=== PATIENT | male | born 1970 | race Caucasian/White ===

== ENCOUNTER → 2016-11-01 | Outpatient (CLI) | payer BC ==
[2016-11-01 18:27] LABS: Basophils # (A) 0.1 k/uL (0-0.2); Basophils % (A) 1 %; CH 29.4; CHCM 35.1; Eosinophils # (A) 0.4 k/uL (0-0.7); Eosinophils % (A) 4 %; HCT 46.3 % (39.0-53.0); HDW 2.93; HGB 15.4 gm/dL (13.0-17.5); Luc # (Auto) 0.21; Luc % (Auto) 2; Lymphocytes % (A) 33 %; MCH 28.1 pg (25.0-35.0); MCHC 33.3 g/dL (31.0-37.0); MCV 84.3 fL (80.0-100.0); Mean Platelet Volume 8.3; Monocytes # (A) 0.7 k/uL (0-1.0); Monocytes % (A) 8 %; Neutrophils # (A) 4.6 k/uL (1.3-7.7); Neutrophils % (A) 52 %; RBC 5.49 m/uL (4.30-5.90); RDW 12.5 % (11.5-15.5); WBC (Perox) 8.83
[2016-11-01 18:45] LABS: ALT 43 U/L (21-72); AST 24 U/L (17-59); Alkaline Phosphatase 69 U/L (38-126); Anion Gap 16 mmol/L; Blood Urea Nitrogen 21 mg/dL (9-20); Calcium 10.3 mg/dL (8.4-10.2); Carbon Dioxide 28 mmol/L (22-30); Chloride 97 mmol/L (98-107); Cholesterol 254 mg/dL (<200); Glucose 237 mg/dL (74-99); HDL Cholesterol 36 mg/dL (40-60); Magnesium 1.2 mg/dL (1.6-2.3); Non-African American GFR(MDRD) >60 (>60 ml/min/1.73 sqM); Potassium 5.5 mmol/L (3.5-5.1); Sodium 141 mmol/L (137-145); Total Bilirubin 0.8 mg/dL (0.2-1.3); Total Protein 8.4 g/dL (6.3-8.2)
[2016-11-01 19:28] LABS: Triglycerides 954 mg/dL (<150)
[2016-11-01 20:26] LABS: Hemoglobin A1C 8.6 % (4.2-6.1)
== END | disposition home or self-care (01) ==
LOC: MMGSC 17:02
PROVIDERS: ATTEND Family Medicine
DX: I10 Essential (primary) hypertension (principal); E73.0 Congenital lactase deficiency; M79.1 Myalgia; E11.9 Type 2 diabetes mellitus without complications
CPT/HCPCS: 36415; 80053; 80061; 82043; 83036; 83721; 83735; 84439; 84443; 85025

== ENCOUNTER → 2017-05-31 | Outpatient (CLI) | payer BC ==
[2017-05-31 19:41] LABS: ALT 73 U/L (21-72); AST 43 U/L (17-59); Alkaline Phosphatase 80 U/L (38-126); Anion Gap 9 mmol/L; Blood Urea Nitrogen 15 mg/dL (9-20); Calcium 9.8 mg/dL (8.4-10.2); Carbon Dioxide 28 mmol/L (22-30); Chloride 99 mmol/L (98-107); Cholesterol 269 mg/dL (<200); Glucose 258 mg/dL (74-99); HDL Cholesterol 28 mg/dL (40-60); Non-African American GFR(MDRD) >60 (>60 ml/min/1.73 sqM); Potassium 5.5 mmol/L (3.5-5.1); Sodium 136 mmol/L (137-145); Total Bilirubin 0.5 mg/dL (0.2-1.3); Total Protein 7.7 g/dL (6.3-8.2)
[2017-05-31 20:47] LABS: Hemoglobin A1C 10.2 % (4.2-6.1)
[2017-06-01 00:52] LABS: Urine Creatinine 187.7 mg/dL
== END | disposition home or self-care (01) ==
LOC: MMGSC 09:18
PROVIDERS: ATTEND Family Medicine
DX: E11.9 Type 2 diabetes mellitus without complications (principal); I10 Essential (primary) hypertension
CPT/HCPCS: 36415; 80053; 80061; 82043; 82570; 83036

== ENCOUNTER → 2017-06-16 | Outpatient (CLI) | payer BC ==
[2017-06-16 20:24] LABS: ALT 58 U/L (21-72); AST 34 U/L (17-59); Alkaline Phosphatase 86 U/L (38-126); Anion Gap 11 mmol/L; Blood Urea Nitrogen 18 mg/dL (9-20); Calcium 9.7 mg/dL (8.4-10.2); Carbon Dioxide 24 mmol/L (22-30); Chloride 101 mmol/L (98-107); Glucose 203 mg/dL (74-99); Non-African American GFR(MDRD) >60 (>60 ml/min/1.73 sqM); Potassium 4.9 mmol/L (3.5-5.1); Sodium 136 mmol/L (137-145); Total Bilirubin 0.7 mg/dL (0.2-1.3); Total Protein 7.5 g/dL (6.3-8.2)
== END | disposition home or self-care (01) ==
LOC: MMGSC 10:24
PROVIDERS: ATTEND Family Medicine
DX: E87.5 Hyperkalemia (principal); E87.1 Hypo-osmolality and hyponatremia
CPT/HCPCS: 36415; 80053

== ENCOUNTER → 2017-12-11 | Outpatient (CLI) | payer BC, OTHER ==
[2017-12-11 18:56] LABS: ALT 64 U/L (21-72); AST 40 U/L (17-59); Albumin 4.3 g/dL (3.5-5.0); Alkaline Phosphatase 74 U/L (38-126); Anion Gap 12 mmol/L; Blood Urea Nitrogen 17 mg/dL (9-20); Calcium 9.6 mg/dL (8.4-10.2); Carbon Dioxide 27 mmol/L (22-30); Chloride 102 mmol/L (98-107); Cholesterol 230 mg/dL (<200); Glucose 203 mg/dL (74-99); HDL Cholesterol 31 mg/dL (40-60); Potassium 4.5 mmol/L (3.5-5.1); Sodium 141 mmol/L (137-145); Total Bilirubin 0.6 mg/dL (0.2-1.3); Total Protein 7.8 g/dL (6.3-8.2); Triglycerides 448 mg/dL (<150)
[2017-12-11 19:02] LABS: Basophils % (A) 1 %; Eosinophils # (A) 0.5 k/uL (0-0.7); Eosinophils % (A) 6 %; HCT 41.3 % (39.0-53.0); HGB 13.9 gm/dL (13.0-17.5); Lymphocytes # (A) 2.6 k/uL (1.0-4.8); Lymphocytes % (A) 37 %; MCH 27.7 pg (25.0-35.0); MCHC 33.6 g/dL (31.0-37.0); MCV 82.4 fL (80.0-100.0); Mean Platelet Volume 8.6; Monocytes # (A) 0.4 k/uL (0-1.0); Monocytes % (A) 6 %; Neutrophils # (A) 3.4 k/uL (1.3-7.7); Neutrophils % (A) 48 %; Platelet Count 351 k/uL (150-450); RBC 5.01 m/uL (4.30-5.90)
[2017-12-11 19:10] LABS: T4, Free (Free Thyroxine) 0.99 ng/dL (0.78-2.19)
[2017-12-12 02:20] LABS: Hemoglobin A1C 9.3 % (4.0-6.0)
== END ==
LOC: MMGSC 09:49
PROVIDERS: ATTEND Family Medicine
DX: E11.9 Type 2 diabetes mellitus without complications (principal); E78.5 Hyperlipidemia, unspecified; I10 Essential (primary) hypertension
CPT/HCPCS: 36415; 80053; 80061; 82043; 82570; 83036; 84439; 84443; 85025

== ENCOUNTER 2022-07-11 19:55 | Inpatient (IN) | payer BC, OTHER ==
[2022-07-11 21:34] LABS: African American GFR (CKD) >90 (>60 ml/min/1.73 sqM); Alcohol <10 mg/dL; Anion Gap 14 mmol/L; Blood Urea Nitrogen 31 mg/dL (9-20); Calcium 9.6 mg/dL (8.4-10.2); Carbon Dioxide 23 mmol/L (22-30); Chloride 101 mmol/L (98-107); Glucose 163 mg/dL (74-99); Non-African American GFR(CKD) 82 (>60 ml/min/1.73 sqM); Potassium 4.1 mmol/L (3.5-5.1); Sodium 138 mmol/L (137-145)
--- NOTE | 2022-07-11 21:48 | ED ---
General Adult HPI - General Source: patient, RN notes reviewed, old records reviewed Mode of arrival: ambulatory <Alexis Greer - Last Filed: 07/11/22 22:29> <Ryan Cadena - Last Filed: 07/12/22 02:23> - General Chief complaint: Psychiatric Symptoms Stated complaint: Mental Health Time Seen by Provider: 07/11/22 20:08 - History of Present Illness Initial comments: Patient is a 52-year-old male with past medical history remarkable for diabetes, hypertension, hyperlipidemia, prior stenting who presents emergency Department c omplaining of a suicide attempt. States he has been more depressed, has had more stressors in life. Today he decided to try to kill himself. He hasn't attempted previously. Patient took an extension cord, tied it around his neck and then tied it to the ceiling of his basement. States he was too tall and is feeling too short for full on hanging. He states therefore he leaned forward for approximately 30 seconds to 60 seconds. States he nearly passed out. He stopped, left, and when he returned, police were at his house. When called them to bring him here for further evaluation. His episode occurred 1-2 hours prior to arrival. Currently denies any shortness of breath, difficulty swallowing. Denies any chest pain, shortness breath, abdominal pain, nausea, vomiting. No acute this time. Denies any homicidal attempts, ideations, plans. Denies any visual or auditory hallucinations. His no other Acute complaints at this time. (Alexis Greer) - Related Data Allergies Allergy/AdvReac Type Severity Reaction Status Date / Time No Known Allergies Allergy Verified 07/11/22 20:05 Review of Systems ROS Other: All systems not noted in ROS Statement are negative. <Alexis Greer - Last Filed: 07/11/22 22:29> ROS Other: All systems not noted in ROS Statement are negative. <Ryan Cadena - Last Filed: 07/12/22 02:23> ROS Statement: Those systems with pertinent positive or pertinent negative responses have been documented in the HPI. Review of Systems: CONST: Denies fever EYES: Denies blurry vision ENT: Denies nasal congestion C/V: Denies Chest pain RESP: Denies shortness of breath GI: Denies abdominal pain : Denies dysuria SKIN: Denies rash. MSK: Denies joint pain. NEURO: Denies headache PSYCH: Denies homicidal ideations/plans/attempts. Endorses suicide attempt. Denies visual or auditory hallucinations. (Alexis Greer) Past Medical History Past Medical History: Coronary Artery Disease (CAD), Chest Pain / Angina, Diabetes Mellitus, Hypertension History of Any Multi-Drug Resistant Organisms: None Reported Past Surgical History: Heart Catheterization With Stent Additional Past Surgical History / Comment(s): x4 STENTS Past Psychological History: No Psychological Hx Reported Smoking Status: Never smoker Past Alcohol Use History: Occasional Past Drug Use History: None Reported <Alexis Greer - Last Filed: 07/11/22 22:29> General Exam <Alexis Greer - Last Filed: 07/11/22 22:29> - General Exam Comments Initial Comments: General: Appears in no acute distress. HEAD: Normal with no signs of head trauma. EYES: PERRLA, EOMI, conjunctiva normal, no discharge. ENT: Hearing grossly intact, normal oropharynx. No stridor. No ligature felton. No carotid bruits. RESPIRATORY: Clear breath sounds bilaterally. No wheezes, rales, or rhonchi. C/V: Regular rate and rhythm. S1 and S2 auscultated, no edema, peripheral pulses 2+ and intact throughout ABD: Abd is soft, nontender, nondistended EXT: Normal range of motion, no obvious deformity SKIN: No rashes or lesions observed on exposed skin. NEURO: Alert and oriented 4. No focal deficits. (Alexis Greer) Course <Ryan Cadena - Last Filed: 07/12/22 02:23> Vital Signs 07/11/22 20:02 Temperature 98.1 F Pulse Rate 95 Respiratory 18 Rate Blood Pressure 137/85 O2 Sat by Pulse 99 Oximetry - Reevaluation(s) Reevaluation #1: 07/12/22 02:23 medical clear for psychiatric evaluation (Ryan Cadena) Medical Decision Making - Lab Data Result diagrams: 07/11/22 21:21 <Alexis Greer - Last Filed: 07/11/22 22:29> - Lab Data Result diagrams: 07/11/22 21:21 <Ryan Cadena - Last Filed: 07/12/22 02:23> - Medical Decision Making Based on the patient's presentation and physical exam, I'm concerned for suicide attempt. The patient. I believe it was a low risk injury on the circulation attempt, however I did offer we obtain CT angiogram of the neck which she was in agreement with. Patient is low risk, with no signs or symptoms of injury but he was in agreement this plan. Basic labs were also be obtained to evaluate the kidney function. Alcohol level is negative. Kidney function is within acceptable limits. Vital signs within normal limits. Patient was placed in green scrubs. Suicide cautions were ordered. Sitter was ordered. Patient changed his mind and refuses CT imaging, as he is asymptomatic, has a low risk attempt, with no signs or symptoms of injury. I believe this is reasonable at this time. We will CT imaging. Patient is now cleared for reevaluation. UDS is pending at this time. Disposition is pending psychiatric evaluation. (Alexis Greer) 52 male seen and evaluated, patient be admitted for psychiatric evaluation and treatment (Ryan Cadena) - Lab Data Lab Results 07/11/22 Range/Units 21:21 Sodium 138 (137-145) mmol/L Potassium 4.1 (3.5-5.1) mmol/L Chloride 101 (98-107) mmol/L Carbon Dioxide 23 (22-30) mmol/L Anion Gap 14 mmol/L BUN 31 H (9-20) mg/dL Creatinine 1.05 (0.66-1.25) mg/dL Est GFR (CKD-EPI)AfAm >90 (>60 ml/min/1.73 sqM) Est GFR (CKD-EPI)NonAf 82 (>60 ml/min/1.73 sqM) Glucose 163 H (74-99) mg/dL Calcium 9.6 (8.4-10.2) mg/dL Serum Alcohol <10 mg/dL Disposition <Alexis Greer - Last Filed: 07/11/22 22:29> Is patient prescribed a controlled substance at d/c from ED?: No <Ryan Cadena - Last Filed: 07/12/22 02:23> Clinical Impression: Attempted suicide, Suicidal ideation, Acute anxiety, Depression Disposition: TRANSFER TO PSYCH HOSP/UNIT Condition: Fair Referrals: None,Stated [Primary Care Provider] - 1-2 days
[2022-07-12] MEDS ORDERED: HALOPERIDOL LACTATE 5 MG/ML 1 ML VIAL IM PRN (03:10)
[2022-07-12] MEDS ORDERED: MAG HYDROX/AL HYDROX/SIMETH 30 ML CUP PO PRN (03:10)
[2022-07-12] MEDS ORDERED: MAGNESIUM HYDROXIDE 2,400 MG/10 ML CUP PO PRN (03:10)
[2022-07-12] MEDS ORDERED: ACETAMINOPHEN TAB 325 MG TAB PO PRN (03:10)
[2022-07-12] MEDS ORDERED: LORazepam 1 MG TAB PO PRN (03:10)
[2022-07-12] MEDS ORDERED: haloperidoL 5 MG TAB PO PRN (03:14)
[2022-07-12] MEDS ORDERED: LORazepam 2 MG/ML INJ IM PRN (03:14)
[2022-07-12 07:57] LABS: Glucose,Whole Blood 143 mg/dL (70-110)
[2022-07-12] MEDS: INSULIN ASPART (NovoLOG) 100 UNIT/ML VIAL SQ SCH ×4 (08:26→20:10)
[2022-07-12 12:53] LABS: Glucose,Whole Blood 139 mg/dL (70-110)
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
[2022-07-12] MEDS ORDERED: LORazepam 1 MG/0.5 ML VIAL IM PRN (15:20)
[2022-07-12] MEDS: SUCRALFATE 1 GM TAB PO SCH ×2 (16:32→20:13)
[2022-07-12] MEDS: PANTOPRAZOLE 40 MG TABLET PO SCH (16:32)
[2022-07-12] MEDS: carvediloL 12.5 MG TAB PO SCH (16:33)
[2022-07-12] MEDS: lisinopriL 20 MG TAB PO SCH (16:33)
[2022-07-12] MEDS: ASPIRIN 81 MG PO SCH (16:33)
[2022-07-12] MEDS: DULoxetine HCL 30 MG CAPSULE.DR PO SCH (16:33)
[2022-07-12 18:14] LABS: Glucose,Whole Blood 190 mg/dL (70-110)
[2022-07-12 20:09] LABS: Glucose,Whole Blood 179 mg/dL (70-110)
[2022-07-12] MEDS: traZODone HCL 50 MG TAB PO SCH (20:13)
[2022-07-12] MEDS: FAMOTIDINE 20 MG TAB PO SCH (20:13)
--- NOTE | 2022-07-13 03:10 | P.CONS ---
History of Present Illness - Reason for Consult Consult date: 07/13/22 - History of Present Illness The patient is a 52-year-old male with a PMH of type II DM, coronary artery disease status post stenting of LAD, hypertension, hyperlipidemia, asthma who presents to the emergency room with complaints of depression and suicidal ideation. The patient reports that he has been having a difficult time at work and his relationship with his is also been deteriorating. He reports that as a result he attempted to hang himself. He denied any physical complaints at the time of interview. He denied experiencing chest discomfort, shortness of breath, fever, chills, cough, nausea, vomiting, abdominal pain, diarrhea. Review of systems: Pertinent positives and negatives as discussed in HPI, a complete review of systems was performed and all other systems are negative. Physical examination: General: non toxic, no distress, appears at stated age, obese Derm: no unusual rashes/lesions, no unusual ecchymoses, warm, dry Head: atraumatic, normocephalic, symmetric Eyes: EOMI, no lid lag, anicteric sclera ENT: Nose and ears atraumatic, no thrush, no pharyngeal erythema Neck: trachea midline, supple Mouth: no lip lesion, mucus membranes moist Cardiovascular: S1S2 reg, no murmur, no edema Lungs: CTA bilateral, no rhonchi, no rales , no accessory muscle use Abdominal: soft, nontender to palpation, no guarding Ext: no gross muscle atrophy, no contractures, Neuro: No gross focal neuro deficits noted Psych: Alert, oriented, appropriate affect Assessment/plan Chronic conditions: Type II DM, hypertension, hyperlipidemia, coronary artery disease -Continue with home medications -Check A1c Depression with suicidal ideation -As per psychiatry Thank you for allowing us to participate in the care of this patient. We will follow peripherally. Do not hesitate to contact us with questions. Someone can be reached from the [facility] hospitalist group at all hours of the day at [phone]. Past Medical History Past Medical History: Coronary Artery Disease (CAD), Chest Pain / Angina, Diabetes Mellitus, Hypertension History of Any Multi-Drug Resistant Organisms: None Reported Past Surgical History: Heart Catheterization With Stent Additional Past Surgical History / Comment(s): x4 STENTS Past Anesthesia/Blood Transfusion Reactions: No Reported Reaction Date of Last Stent Placement:: UNK Smoking Status: Never smoker - Past Family History Mother Sister(s) Family Medical History: Asthma Medications and Allergies Home Medications Medication Instructions Recorded Confirmed Type Albuterol Sulfate [Albuterol 1 puff PO Q4-6H 07/12/22 07/12/22 History Sulfate Hfa] Aspirin 81 mg PO DAILY 07/12/22 07/12/22 History Dexlansoprazole [Dexilant] 60 mg PO 07/12/22 History Dulaglutide [Trulicity] 0.75 mg SQ 07/12/22 History Famotidine 40 mg PO 07/12/22 History Furosemide [Lasix] 20 mg PO DAILY 07/12/22 07/12/22 History Pantoprazole Sodium [Protonix] 40 mg PO 07/12/22 History Rosuvastatin Calcium [Crestor] 40 mg PO 07/12/22 History Sucralfate [Carafate] 1 gm PO ACHS 07/12/22 07/12/22 History Venlafaxine HCl ER [Effexor Xr] 150 mg PO DAILY 07/12/22 07/12/22 History carvediloL [Coreg] 12.5 mg PO BID 07/12/22 07/12/22 History lisinopriL 40 mg PO DAILY 07/12/22 07/12/22 History Allergies Allergy/AdvReac Type Severity Reaction Status Date / Time Fish Containing Products Allergy Anaphylaxis Verified 07/12/22 03:17 [Fish] sesame oil Allergy Unknown Verified 07/12/22 03:17 Sesame Seed Allergy Unknown Verified 07/12/22 03:17 Physical Exam Vitals: Vital Signs Temp Pulse Resp BP Pulse Ox 07/12/22 16:34 91 127/81 07/12/22 08:00 98.0 F 81 17 136/76 98 07/12/22 04:18 98.6 F 77 18 134/76 98 Results CBC & Chem 7: 07/11/22 21:21 Labs: Abnormal Lab Results - Last 24 Hours (Table) 07/12/22 07/12/22 07/12/22 Range/Units 07:55 12:51 18:12 POC Glucose (mg/dL) 143 H 139 H 190 H (70-110) mg/dL 07/12/22 Range/Units 20:06 POC Glucose (mg/dL) 179 H (70-110) mg/dL
[2022-07-13 07:03] VITALS: RESP 16
[2022-07-13 08:04] LABS: Glucose,Whole Blood 157 mg/dL (70-110)
[2022-07-13] MEDS: FAMOTIDINE 20 MG TAB PO SCH ×2 (08:08→20:10)
[2022-07-13] MEDS: SUCRALFATE 1 GM TAB PO SCH ×4 (08:08→20:09)
[2022-07-13] MEDS: PANTOPRAZOLE 40 MG TABLET PO SCH (08:08)
[2022-07-13] MEDS: INSULIN ASPART (NovoLOG) 100 UNIT/ML VIAL SQ SCH ×4 (08:08→20:09)
[2022-07-13] MEDS: ASPIRIN 81 MG PO SCH (08:09)
[2022-07-13] MEDS: lisinopriL 20 MG TAB PO SCH (08:09)
[2022-07-13] MEDS: carvediloL 12.5 MG TAB PO SCH ×2 (08:09→17:44)
[2022-07-13] MEDS: DULoxetine HCL 30 MG CAPSULE.DR PO SCH (08:09)
--- NOTE | 2022-07-13 10:37 | P.PN ---
Progress Note - Text Progress Note Date: 07/13/22 Interval History: Patient was seen wandering the hallways and was directable and agreeable to sp luis carlos with proposal lead writer in the office. Patient appears to be calmer today and states that he is doing a bit better with regard to his mood. He also states that his anxiety has been improving as well. He claims that he is going to groups and participating. He states that he is regretful for what had occurred prior to coming into the hospital in regards to the failed suicide attempt. He states that he feels medications have been helping him and he feels much better than he did on the outside. He states that he was able to sleep a little better last night and has a fair appetite. He asked more questions about his medications. At this time patient denies any suicidal or homical ideations, intent or plan. Patient denies any auditory, visual hallucinations and denies any paranoia or delusions. Patient denies any side effects from the medications and has been compliant with meds. Mental Status Exam: General Appearance: Patient appears to be well built, multiple tattoos, well- groomed, stated age is alert, directable, and attempts to cooperate. Patient appears to have good hygiene and grooming. Behavior: Patient is seated without any agitated behavior. Cooperative Speech: Patient's speech is fluent and nonpressured. Mood/Affect: Patient reports their mood is improving, affect is congruent and constricted. Suicidality/Homicidality: Patient denies having any homicidal ideation intent or plan. Denies any suicidal ideations intent or plan Perceptions: Patient denies any visual hallucinations and denies any auditory hallucinations Though content/process: There is no evidence of any delusional thought content and thought process is linear and goal-directed. Memory and concentration: AOX3, grossly intact for the purposes of this session Judgment and insight: Fair IMPRESSIONS: Major depressive disorder, without psychotic features Suicide attempt Plan: -Patient continues to meet criteria for inpatient psychiatric admission for symptom stabilization and safety. Patient has signed adult voluntary form and medication consent and was placed in patient's chart. -Medications: Cymbalta 30 mg daily for mood/anxiety/pain, trazodone 25 mg daily at bedtime for mood/insomnia. -When necessary Ativan and Haldol for agitation/aggression. -NRT - not needed as patient does not smoke -SW on board for discharge planning. Encouraged the patient to participate in milieu. likely discharge tomorrow.
[2022-07-13 11:50] LABS: Basophils # (A) 0.1 k/uL (0-0.2); Basophils % (A) 1 %; Eosinophils # (A) 0.6 k/uL (0-0.7); Eosinophils % (A) 6 %; HCT 39.4 % (39.0-53.0); HGB 12.9 gm/dL (13.0-17.5); Lymphocytes # (A) 2.2 k/uL (1.0-4.8); Lymphocytes % (A) 23 %; MCH 27.8 pg (25.0-35.0); MCHC 32.8 g/dL (31.0-37.0); MCV 84.8 fL (80.0-100.0); Mean Platelet Volume 8.6; Monocytes # (A) 0.3 k/uL (0-1.0); Monocytes % (A) 4 %; Neutrophils # (A) 6.3 k/uL (1.3-7.7); Neutrophils % (A) 65 %; Platelet Count 348 k/uL (150-450); RBC 4.64 m/uL (4.30-5.90); RDW 13.1 % (11.5-15.5); WBC 9.8 k/uL (3.8-10.6)
[2022-07-13 12:26] LABS: ALT 20 U/L (4-49); Albumin 4.4 g/dL (3.5-5.0); Bilirubin, Delta 0.2 mg/dL (0.0-0.2); Bilirubin,Unconjugated 0.3 mg/dL (0.0-1.1); Total Bilirubin 0.5 mg/dL (0.2-1.3); Total Protein 7.4 g/dL (6.3-8.2)
[2022-07-13 12:29] LABS: AST 27 U/L (17-59); Alkaline Phosphatase 78 U/L (38-126)
[2022-07-13 12:56] LABS: Glucose,Whole Blood 235 mg/dL (70-110)
[2022-07-13 17:42] LABS: Glucose,Whole Blood 115 mg/dL (70-110)
[2022-07-13 19:36] LABS: Chol/HDL Ratio 4.59 Ratio; LDL Cholesterol,Calculated 34.3 mg/dL (0.0-131.0)
[2022-07-13 20:07] LABS: Glucose,Whole Blood 174 mg/dL (70-110)
[2022-07-13] MEDS: traZODone HCL 50 MG TAB PO SCH (20:10)
[2022-07-14 07:42] LABS: Glucose,Whole Blood 167 mg/dL (70-110)
[2022-07-14 08:30] VITALS: BP 111/75; PULSE 94; TEMP 96.9
[2022-07-14] MEDS: lisinopriL 20 MG TAB PO SCH (08:30)
[2022-07-14] MEDS: INSULIN ASPART (NovoLOG) 100 UNIT/ML VIAL SQ SCH ×2 (08:30→12:57)
[2022-07-14] MEDS: ASPIRIN 81 MG PO SCH (08:31)
[2022-07-14] MEDS: DULoxetine HCL 30 MG CAPSULE.DR PO SCH (08:31)
[2022-07-14] MEDS: carvediloL 12.5 MG TAB PO SCH (08:31)
[2022-07-14] MEDS: PANTOPRAZOLE 40 MG TABLET PO SCH (08:31)
[2022-07-14] MEDS: FAMOTIDINE 20 MG TAB PO SCH (08:31)
[2022-07-14] MEDS: SUCRALFATE 1 GM TAB PO SCH ×2 (08:31→12:57)
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
[2022-07-14 12:38] LABS: Glucose,Whole Blood 194 mg/dL (70-110)
== END 2022-07-14 17:32 | disposition home or self-care (01) | DRG 881 ==
LOC: EC 19:55 → 3MHU 07-12 03:05
PROVIDERS: ADMIT Psychiatry & Neurology Psychiatry; ATTEND Psychiatry & Neurology Psychiatry
DX: F32.9 Major depressive disorder, single episode, unspecified (principal); T71.162A Asphyxiation due to hanging, intentional self-harm, initial encounter; R45.851 Suicidal ideations; E11.9 Type 2 diabetes mellitus without complications; Z20.822 Contact with and (suspected) exposure to COVID-19; I25.10 Atherosclerotic heart disease of native coronary artery without angina pectoris; J45.909 Unspecified asthma, uncomplicated; I10 Essential (primary) hypertension; E78.5 Hyperlipidemia, unspecified; G47.00 Insomnia, unspecified; F41.9 Anxiety disorder, unspecified; Z79.82 Long term (current) use of aspirin; Z79.85 Long-term (current) use of injectable non-insulin antidiabetic drugs; Z79.899 Other long term (current) drug therapy; Z95.5 Presence of coronary angioplasty implant and graft
CPT/HCPCS: 36415; 80048; 80061; 80076; 80320; 83036; 84443; 85025; 87635; 99285

== ENCOUNTER 2022-08-19 10:42 | Emergency (ER) | payer BC ==
[2022-08-19 10:57] VITALS: BP 135/81; PULSE 90; RESP 18; TEMP 98
[2022-08-19] MEDS ORDERED: ORPHENADRINE 30 MG/ML 2 ML VIAL IM STA (11:33)
--- NOTE | 2022-08-19 11:37 | ED ---
Back Pain HPI - General Chief Complaint: Back Pain/Injury Stated Complaint: rib injury Time Seen by Provider: 08/19/22 10:59 Source: patient, RN notes reviewed, old records reviewed Limitations: no limitations - History of Present Illness Initial Comments: This is a well-appearing 52-year-old male presents to the emergency room with complaints of right posterior rib pain. 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 Patient has had pain since. He has been trying Tylenol and Motrin with no relief. Worse with deep breaths, cough, bending, twisting or palpation. Denies any hemoptysis. MD Complaint: back pain -: days(s) (4) Similar Symptoms Previously: No Radiation: none Severity scale (1-10): 7 Consistency: constant Worsens With: immobilization Context: turning/twisting, other (palpation) Associated Symptoms: denies other symptoms Treatments Prior to Arrival: NSAIDS, acetaminophen - Related Data Home Medications Medication Instructions Recorded Confirmed Albuterol Sulfate [Albuterol 1 puff PO Q4-6H 07/12/22 07/12/22 Sulfate Hfa] Aspirin 81 mg PO DAILY 07/12/22 07/12/22 Dexlansoprazole [Dexilant] 60 mg PO 07/12/22 Dulaglutide [Trulicity] 0.75 mg SQ 07/12/22 Famotidine 40 mg PO 07/12/22 Pantoprazole Sodium [Protonix] 40 mg PO 07/12/22 Rosuvastatin Calcium [Crestor] 40 mg PO 07/12/22 Sucralfate [Carafate] 1 gm PO ACHS 07/12/22 07/12/22 carvediloL [Coreg*] 12.5 mg PO BID 07/12/22 07/12/22 lisinopriL 40 mg PO DAILY 07/12/22 07/12/22 Previous Rx's Medication Instructions Recorded DULoxetine HCL [Cymbalta] 30 mg PO DAILY 30 Days cap 07/14/22 traZODone HCL [Desyrel] 25 mg PO HS 30 Days tab 07/14/22 Cyclobenzaprine [Flexeril] 10 mg PO TID PRN #15 tab 08/19/22 Allergies Allergy/AdvReac Type Severity Reaction Status Date / Time Fish Containing Products Allergy Anaphylaxis Verified 11/18/22 10:57 [Fish] sesame oil Allergy Unknown Verified 08/19/22 10:57 Sesame Seed Allergy Unknown Verified 08/19/22 10:57 Review of Systems ROS Statement: Those systems with pertinent positive or pertinent negative responses have been documented in the HPI. ROS Other: All systems not noted in ROS Statement are negative. Past Medical History Past Medical History: Coronary Artery Disease (CAD), Chest Pain / Angina, Diabe linden Mellitus, Hypertension History of Any Multi-Drug Resistant Organisms: None Reported Past Surgical History: Heart Catheterization With Stent Additional Past Surgical History / Comment(s): x4 STENTS Past Anesthesia/Blood Transfusion Reactions: No Reported Reaction Date of Last Stent Placement:: UNK Past Psychological History: No Psychological Hx Reported Smoking Status: Never smoker - Past Family History Mother Sister(s) Family Medical History: Asthma General Exam General appearance: alert, in no apparent distress Head exam: Present: atraumatic, normocephalic Eye exam: Absent: scleral icterus, conjunctival injection, periorbital swelling Neck exam: Present: normal inspection. Absent: tenderness Respiratory exam: Present: normal lung sounds bilaterally. Absent: respiratory distress, wheezes, rales, rhonchi, stridor, accessory muscle use Cardiovascular Exam: Present: regular rate GI/Abdominal exam: Present: soft. Absent: distended, tenderness, rigid Back exam: Present: normal inspection, tenderness (Right lower posterior ribs). Absent: CVA tenderness (R), CVA tenderness (L), paraspinal tenderness, vertebral tenderness, rash noted Neurological exam: Present: alert, oriented X3, normal gait Psychiatric exam: Present: normal affect, normal mood Skin exam: Present: warm, dry, intact. Absent: cyanosis, diaphoretic, petechiae, pallor Course Vital Signs 08/19/22 10:52 Temperature 98.0 F Pulse Rate 90 Respiratory 18 Rate Blood Pressure 135/81 O2 Sat by Pulse 97 Oximetry Medical Decision Making - Medical Decision Making X-ray interpreted by me shows no evidence of consolidation, no evidence of rib fracture. Radiologist interpretation no acute cardiopulmonary process. Osseous structures grossly intact. This is likely musculoskeletal rib pain. He denies any difficulty breathing or chest pain. Patient discharged home directed to continue Tylenol and Motrin for pain, use muscle relaxers as prescribed and take deep breaths and cough to prevent pneumonia He was offered Lidoderm patches and declined states he does have a topical analgesic he uses. Patient requested a work note which was provided. Oxygen saturation 97%, lung sounds are clear to auscultation. Case discussed with Dr. Mcgowan Disposition Clinical Impression: Rib pain on right side Disposition: HOME SELF-CARE Condition: Good Instructions (If sedation given, give patient instructions): Costochondritis (ED) Additional Instructions: Increase your fluid intake, Tylenol and/or Motrin as needed for any pain or discomfort. Remember to take deep breaths and cough at least every hour to prevent pneumonia. Use Flexeril as needed for muscle relaxer but do not drive, operate heavy machinery or drink alcohol when taking this medication. Follow-up with the primary care doctor next week. Return to the emergency room with any new or concerning symptoms. Prescriptions: Cyclobenzaprine [Flexeril] 10 mg PO TID PRN #15 tab PRN Reason: Muscle Spasm Is patient prescribed a controlled substance at d/c from ED?: No Referrals: Nonstaff,Physician [REFERRING] - 1-2 days Time of Disposition: 12:10
--- NOTE | 2022-08-19 11:39 | XR ---
EXAMINATION TYPE: XR chest 2V DATE OF EXAM: 08/19/2022 COMPARISON: NONE HISTORY: Chest pain TECHNIQUE: Frontal and lateral views of the chest are obtained. FINDINGS: There is no focal air space opacity. No evidence for pneumothorax. No pleural effusion. The cardiac silhouette size is within normal limits. The osseous structures are grossly intact. IMPRESSION: 1. No acute cardiopulmonary process.
== END 2022-08-19 12:15 | disposition home or self-care (01) ==
LOC: EC 10:42
DX: R07.81 Pleurodynia (principal); I11.9 Hypertensive heart disease without heart failure; I25.10 Atherosclerotic heart disease of native coronary artery without angina pectoris; E11.9 Type 2 diabetes mellitus without complications; Z79.82 Long term (current) use of aspirin; Z79.4 Long term (current) use of insulin; Z79.02 Long term (current) use of antithrombotics/antiplatelets; Z79.899 Other long term (current) drug therapy; Z91.013 Allergy to seafood; Z91.018 Allergy to other foods
CPT/HCPCS: 71046; 99283; 96372; J2360